=== PATIENT | female | born 1930 | race Caucasian/White ===

== ENCOUNTER 2016-06-15 21:21 | Inpatient (IN) | payer MEDICARE ==
[~2016-06-15 21:21] MED LIST: ASPIRIN 325MG325 MG NG; BACTRIM D.S. TAB1 EA PO; CALCITRIOL0.25 MCG PO; CEFTIN500 MG PO; CIPRO500 MG PO; CORDARONE 200M200 MG PO; COREG 3.125M3.125 MG PO; DIFLUCAN150 MG PO; DOXERCALCIFEROL1 MCG PO; DULCOLAX5 MG PO; ELIQUIS2.5 MG PO; FOLIC ACID 1 MG1 MG PO; JANUVIA50 MG PO; K-TAB ER20 MEQ PO; KEPPRA250 MG PO; LANOXIN TAB0.125 MG PO; LASIX40 MG PO; LEVAQUIN250 MG PO; LIPITOR TAB 2020 MG PO; LISINOPRIL2.5 MG PO; MEGACE TAB 40 M40 MG PO; MULTILEX-T-M W1 EACH PO; MYCOSTATIN OINT15 GM EXT; NASONEX SPRAY 117 GM; NEURONTIN 300300 MG PO; PROAIR HFA8.5 GM INH; PROTONIX 40 MG40 M1 PO; SILVADENE CREAM20 GM EXT; SYNTHROID50 MCG PO; TOPROL XL25 MG PO; TYLENOL W/CODEIN1 E1 PO; VENTOLIN/PROVE0.5 ML INH; VESICARE5 MG PO; ZYLOPRIM 100 M100 MG PO
[2016-06-16 03:13] LABS: HEMOGLOBIN 9.7 gm/dl (12.3-15.3); RED BLOOD COUNT 3.02 M/UL (4.00-5.10); WHITE BLOOD COUNT 11.1 K/UL (4.5-11.0)
[2016-06-16] MEDS ORDERED: LISINOPRIL2.5 MG PO (11:12)
[2016-06-16] MEDS ORDERED: MEGACE TAB 40 M40 MG PO (11:13)
[2016-06-16] MEDS ORDERED: BUMEX 1MG TABLET1 MG PO (11:13)
[2016-06-16] MEDS ORDERED: METOLAZONE5 MG PO (11:14)
[2016-06-16] MEDS ORDERED: NEURONTIN 100100 MG PO (11:15)
[2016-06-16] MEDS ORDERED: NASONEX17 GM (11:16)
[2016-06-17 03:57] LABS: HEMOGLOBIN 9.7 gm/dl (12.3-15.3); RED BLOOD COUNT 3.06 M/UL (4.00-5.10); WHITE BLOOD COUNT 11.9 K/UL (4.5-11.0)
[2016-06-18 04:30] LABS: HEMOGLOBIN 9.2 gm/dl (12.3-15.3); RED BLOOD COUNT 2.87 M/UL (4.00-5.10); WHITE BLOOD COUNT 12.2 K/UL (4.5-11.0)
== END 2016-06-18 19:58 | disposition expired | DRG 871 ==
LOC: ER1 21:21 → ZEROF 06-16 07:10 → CCU 06-16 21:20
PROVIDERS: Family Medicine; Internal Medicine Cardiovascular Disease; Internal Medicine Nephrology; ADMIT Emergency Medicine
DX: A41.9 Sepsis, unspecified organism (principal); I21.4 Non-ST elevation (NSTEMI) myocardial infarction; I50.23 Acute on chronic systolic (congestive) heart failure; G92 Toxic encephalopathy; R65.21 Severe sepsis with septic shock; L89.154 Pressure ulcer of sacral region, stage 4; I42.8 Other cardiomyopathies; N39.0 Urinary tract infection, site not specified; Z51.5 Encounter for palliative care; Z66 Do not resuscitate; I69.854 Hemiplegia and hemiparesis following other cerebrovascular disease affecting left non-dominant side; E46 Unspecified protein-calorie malnutrition; N17.9 Acute kidney failure, unspecified; I47.2 Ventricular tachycardia; I13.0 Hypertensive heart and chronic kidney disease with heart failure and stage 1 through stage 4 chronic kidney disease, or unspecified chronic kidney disease; I34.0 Nonrheumatic mitral (valve) insufficiency; Z95.810 Presence of automatic (implantable) cardiac defibrillator; D63.8 Anemia in other chronic diseases classified elsewhere; R32 Unspecified urinary incontinence; N18.9 Chronic kidney disease, unspecified; I25.10 Atherosclerotic heart disease of native coronary artery without angina pectoris; M10.9 Gout, unspecified; M50.30 Other cervical disc degeneration, unspecified cervical region; M51.36 Other intervertebral disc degeneration, lumbar region; E11.22 Type 2 diabetes mellitus with diabetic chronic kidney disease; N18.3 Chronic kidney disease, stage 3 (moderate); H35.30 Unspecified macular degeneration; G40.909 Epilepsy, unspecified, not intractable, without status epilepticus; E78.5 Hyperlipidemia, unspecified; Z99.81 Dependence on supplemental oxygen; E86.0 Dehydration; I48.91 Unspecified atrial fibrillation; M19.90 Unspecified osteoarthritis, unspecified site; Z74.01 Bed confinement status; Z88.6 Allergy status to analgesic agent; Z88.8 Allergy status to other drugs, medicaments and biological substances; Z79.82 Long term (current) use of aspirin; Z79.51 Long term (current) use of inhaled steroids; Z79.899 Other long term (current) drug therapy
CPT/HCPCS: 36415; 70450; 71010; 80048; 80053; 80202; 81001; 82043; 82533; 82550; 82553; 82570; 83605; 83735; 83874; 83880; 84484; 85025; 85027; 87040; 87086; 93005; 94640; 94664; 96374; 99285; A6243; J0696; J1335; J2185; J2270; J3370; J3480; J7030; J7040; J7050; J7070; P9047